=== PATIENT | female | born 1985 | race Caucasian/White ===

== ENCOUNTER 2018-12-27 05:25 | Inpatient (IN) | payer OTHER ==
[~2018-12-27] VITALS: Ht 162.6 cm; Wt 105.0 kg
[~2018-12-27 05:25] MED LIST: BACTDS PO; FERR325C PO; HYDR-3601 ORAL; IBUP-1544 ORAL; ONDA4TAB35 PO; PREN1TAB49 PO
[2018-12-27 05:42] VITALS: BP 107/56; PULSE 73; RESP 16; Ht 162.6 cm; Wt 105.0 kg
[2018-12-27] MEDS ORDERED: CITRIC ACID/NA CITRATE 30 ML CUP PO PRN ×2 (06:00→06:30)
[2018-12-27] MEDS ORDERED: METHYLERGONOVINE 0.2 MG INJ IM PRN (06:00)
[2018-12-27] MEDS ORDERED: OXYTOCIN 30 UNITS/LR 500 ML IV PRN (06:00)
[2018-12-27] MEDS ORDERED: MISOPROSTOL 200 MCG TAB PR PRN ×2 (06:00→08:00)
[2018-12-27] MEDS ORDERED: CARBOPROST 250 MCG INJ IM PRN (06:00)
[2018-12-27] MEDS ORDERED: OXYTOCIN 30 UNITS/LR 500 ML IV SCH (06:00)
[2018-12-27] MEDS: LACTATED RINGER'S 1,000 ML IV SCH ×3 (06:20→21:47)
[2018-12-27] MEDS ORDERED: ONDANSETRON 4 MG INJ IV STA (07:27)
[2018-12-27] MEDS ORDERED: CITRIC ACID/NA CITRATE 30 ML CUP PO ONE (07:30)
[2018-12-27] MEDS ORDERED: ONDANSETRON 4 MG INJ ONE (07:32)
[2018-12-27] MEDS ORDERED: CITRIC ACID/NA CITRATE 30 ML CUP ONE (07:32)
[2018-12-27] MEDS ORDERED: LACTATED RINGER'S 1,000 ML IV SCH (07:38)
[2018-12-27] MEDS ORDERED: OXYTOCIN 10 UNIT INJ ONE (07:48)
[2018-12-27] MEDS ORDERED: FENTAnyl 50 MCG/ML VIAL ONE (07:48)
[2018-12-27] MEDS ORDERED: morphine SULFATE/PF (10 MG/10 ML) INJ ONE (07:48)
[2018-12-27] MEDS ORDERED: METOCLOPRAMIDE 10 MG INJ ONE (07:48)
[2018-12-27] MEDS ORDERED: LANOLIN HPA 1 PKT TOP PRN (08:00)
[2018-12-27] MEDS ORDERED: NA PHOSPHATE/BIPHOS 133 ML ENEMA PR PRN (08:00)
[2018-12-27] MEDS ORDERED: KETOROLAC 30 MG INJ ONE (08:32)
[2018-12-27] MEDS ORDERED: DEXAMETHASONE 4 MG/ML 1 ML INJ ONE (08:35)
[2018-12-27] MEDS ORDERED: MIDAZOLAM 1 MG/ML 2 ML INJ ONE (08:35)
[2018-12-27] MEDS: CEFAZOLIN 2 GM/50 ML (PMX) 50 ML IVPB SCH ×2 (09:32→14:11)
[2018-12-27] MEDS ORDERED: FENTAnyl 50 MCG/ML VIAL IV PRN ×3 (10:00)
[2018-12-27] MEDS ORDERED: NALOXONE (0.4 MG/ML) INJ IV PRN (10:00)
[2018-12-27] MEDS ORDERED: ONDANSETRON 4 MG INJ IV PRN ×2 (10:00)
[2018-12-27] MEDS ORDERED: DIPHENHYDRAMINE 50 MG INJ IV PRN ×2 (10:00)
[2018-12-27] MEDS ORDERED: MIDAZOLAM 1 MG/ML 2 ML INJ IV PRN (10:00)
[2018-12-27] MEDS ORDERED: EPHEDrine 25 MG/5 ML SYG IV PRN (10:00)
[2018-12-27] MEDS ORDERED: morphine 2 MG INJ IV PRN ×2 (10:00)
[2018-12-27] MEDS ORDERED: NALBUPHINE HCL (10 MG/1 ML) INJ IV PRN (10:00)
[2018-12-27] MEDS ORDERED: IPRATROPIUM (NEB) 0.5 MG/2.5 ML AMP HHN PRN (10:00)
[2018-12-27] MEDS ORDERED: hydrALAzine 20 MG INJ IV PRN (10:00)
[2018-12-27] MEDS ORDERED: TRIMETHOBENZAMIDE 100 MG/ML VIAL IM PRN ×2 (10:00)
[2018-12-27] MEDS ORDERED: LABETALOL HCL 20MG INJ IV PRN (10:00)
[2018-12-27] MEDS ORDERED: HYDROmorphONE 1 MG/5 ML IV SYRINGE IV PRN ×3 (10:00)
[2018-12-27] MEDS ORDERED: ALBUTEROL 0.083% (NEB) 2.5 MG/3 ML AMP HHN PRN (10:00)
[2018-12-27] MEDS ORDERED: MEPERIDINE 25 MG INJ IV PRN (10:00)
[2018-12-27 11:50] VITALS: BP 110/60; PULSE 66; RESP 20
[2018-12-27] MEDS: SENNA/DOCUSATE NA (8.6MG/50MG) TAB PO SCH ×2 (11:50→20:51)
[2018-12-27] MEDS: IBUPROFEN 600 MG TAB PO SCH ×2 (12:00→18:00)
[2018-12-27] MEDS: KETOROLAC 30 MG INJ IV PRN (15:36)
[2018-12-27 16:18] VITALS: BP 111/59; PULSE 66; RESP 18
[2018-12-27 19:40] VITALS: BP 104/57; PULSE 67; RESP 18
[2018-12-28] VITALS: BP_SYST 108; BP_SYST 130; BP_DIAS 58; BP_DIAS 73; PULSE 67; RESP 16; RESP 18
[2018-12-28 04:00] VITALS: BP 136/77; PULSE 64; RESP 18
[2018-12-28] MEDS: KETOROLAC 30 MG INJ IV PRN (04:10)
[2018-12-28] MEDS: LACTATED RINGER'S 1,000 ML IV SCH (05:47)
[2018-12-28] MEDS: IBUPROFEN 600 MG TAB PO SCH ×5 (06:00→23:39)
[2018-12-28 08:30] VITALS: BP 116/63; PULSE 69; RESP 16
[2018-12-28] MEDS: SENNA/DOCUSATE NA (8.6MG/50MG) TAB PO SCH ×2 (09:40→21:20)
[2018-12-28] MEDS: OXYCODONE/ACETAMINOPHEN (5/325) TAB PO PRN (11:44)
[2018-12-28 12:39] VITALS: BP 98/53; PULSE 62; RESP 18
[2018-12-28 15:55] VITALS: BP 109/66; PULSE 63; RESP 18
[2018-12-28 19:55] VITALS: BP 98/61; PULSE 71; RESP 19
[2018-12-29 04:00] VITALS: BP 113/68; PULSE 65; RESP 18
[2018-12-29] MEDS: IBUPROFEN 600 MG TAB PO SCH ×4 (05:33→23:26)
[2018-12-29 08:00] VITALS: BP 118/71; PULSE 62; RESP 16
[2018-12-29] MEDS: SENNA/DOCUSATE NA (8.6MG/50MG) TAB PO SCH ×2 (08:47→21:00)
[2018-12-29] MEDS: OXYCODONE/ACETAMINOPHEN (5/325) TAB PO PRN ×2 (09:23→17:59)
[2018-12-29 16:07] VITALS: BP 101/61; PULSE 69; RESP 18
[2018-12-29 20:00] VITALS: BP 116/68; PULSE 65; RESP 19
[2018-12-30 03:40] VITALS: BP 116/71; PULSE 66; RESP 19
[2018-12-30] MEDS: OXYCODONE/ACETAMINOPHEN (5/325) TAB PO PRN ×2 (03:40→10:51)
[2018-12-30] MEDS: IBUPROFEN 600 MG TAB PO SCH ×2 (05:36→12:08)
[2018-12-30 08:00] VITALS: BP 109/71; PULSE 54; RESP 18
[2018-12-30] MEDS ORDERED: DIPHTH/TET/ACEL PERTUSS (ADULT) 0.5 ML VIAL IM* ONE (09:00)
[2018-12-30] MEDS: SENNA/DOCUSATE NA (8.6MG/50MG) TAB PO SCH (09:00)
[2018-12-30] MEDS ORDERED: MEASLES,MUMPS,RUBELLA VACCINE INJ SC* ONE (09:00)
== END 2018-12-30 12:40 | disposition home or self-care (01) | DRG 785 ==
LOC: L-D 05:25 → PP1 11:48
PROVIDERS: ADMIT Specialist; ATTEND Specialist
PROC: 0UT70ZZ Resection of Bilateral Fallopian Tubes, Open Approach (ICD-10-PCS; 2018-12-27)
PROC: 3E033VJ Introduction of Other Hormone into Peripheral Vein, Percutaneous Approach (ICD-10-PCS; 2018-12-27)
PROC: 10D00Z1 Extraction of Products of Conception, Low, Open Approach (ICD-10-PCS; principal; 2018-12-27 07:30)
DX: O65.5 Obstructed labor due to abnormality of maternal pelvic organs (principal); O34.211 Maternal care for low transverse scar from previous cesarean delivery; Z3A.39 39 weeks gestation of pregnancy; Z37.0 Single live birth; Z30.2 Encounter for sterilization
CPT/HCPCS: 85025; 85610; 85730; 86592; 86850; 86900; 86901; 87340; 88302; 99464; J0690; J1100; J1885; J2250; J2274; J2405; J2590; J2765; J3010; J7120

== ENCOUNTER 2019-01-03 18:37 | Emergency (ER) | payer OTHER ==
[~2019-01-03] VITALS: Ht 162.6 cm; Wt 105.0 kg
[~2019-01-03 18:37] MED LIST changes: -BACTDS PO; -ONDA4TAB35 PO
[2019-01-03 18:44] VITALS: Ht 162.6 cm; Wt 105.0 kg
[2019-01-03] MEDS ORDERED: SOD CHLORIDE 0.9% 1,000 ML IV STA (20:25)
[2019-01-03] MEDS ORDERED: ONDANSETRON 4 MG INJ IV STA (20:25)
[2019-01-03] MEDS ORDERED: HYDROmorphONE 1 MG/ML SYG IV STA (20:25)
[2019-01-03] MEDS ORDERED: SOD CHLORIDE 0.9% 100 ML ONE (20:51)
[2019-01-03] MEDS ORDERED: IOHEXOL 300MG/ML 150 ML BTL ONE (20:51)
[2019-01-03 22:30] VITALS: BP 112/60; PULSE 68; RESP 16
[2019-01-03] MEDS ORDERED: MAGNESIUM CITRATE 300 ML BTL PO ONE (22:30)
== END 2019-01-03 22:36 | disposition home or self-care (01) ==
LOC: E/R 18:37
DX: K59.00 Constipation, unspecified (principal)
CPT/HCPCS: 36415; 74177; 80048; 84702; 85025; 96374; 96375; J1170; J2405; J7030; Q9967; Z7502; Z7610